=== PATIENT | male | born 1985 | race African-American/Black ===

== ENCOUNTER 2025-02-11 12:20 | Inpatient (IN) | payer OTHER, MEDICAID ==
[~2025-02-11] VITALS: Ht 167.6 cm; Wt 67.2 kg
[2025-02-11 13:35] LABS: PLATELET COUNT (AUTO) 301 K/uL (150-450); RED BLOOD CELL COUNT(AUTO) 4.87 MIL/uL (4.50-5.90); RED CELL DISTRIBUTION WIDTH 13.8 % (11.5-14.5); WHITE BLOOD COUNT (AUTO) 8.7 K/uL (4.5-11.0)
[2025-02-11] MEDS: LORazepam 2 MG/ML VIAL IM ONE (13:39)
[2025-02-11 13:42] LABS: CALCIUM, TOTAL 9.0 mg/dL (8.8-10.5); CREATININE 1.27 mg/dL (0.60-1.30); GLOMERULAR FILTR. RATE CALC > 60 mL/min (>60); GLUCOSE,RANDOM 166 mg/dL (70-110); SODIUM SERUM 142 mmol/L (136-145); UREA NITROGEN, BLOOD 17 mg/dL (7-18)
[2025-02-11] MEDS ORDERED: ZOLPIDEM TARTRATE 10 MG TABLET PO PRN (13:45)
[2025-02-11 14:02] LABS: COVID AG,FIA SOURCE NASAL SWAB
[2025-02-11 14:18] VITALS: O2SAT 98
[2025-02-11 14:33] LABS: SARS-COV2 (COVID) ANTIGEN,FIA Negative (Negative)
[2025-02-11 19:16] VITALS: BP 116/93; PULSE 58; RESP 16; TEMP 98.2; O2SAT 100
[2025-02-11 20:46] VITALS: RESP 18
[2025-02-11 22:36] VITALS: RESP 17
[2025-02-12 10:11] VITALS: RESP 17
[2025-02-12] MEDS ORDERED: RISP4TAB94 PO (11:12)
[2025-02-12] MEDS ORDERED: RISP0.5T39 PO (11:12)
[2025-02-12 22:41] VITALS: BP 127/67; PULSE 72; RESP 17; TEMP 98.1; O2SAT 98
[2025-02-13] MEDS ORDERED: IBUPROFEN 600 MG TABLET PO PRN
[2025-02-13] MEDS ORDERED: BENZOCAINE/MENTHOL [CEPACOL] LOZENGE PO PRN
[2025-02-13] MEDS ORDERED: OMEPRAZOLE 20 MG CAPSULE PO PRN
[2025-02-13] MEDS ORDERED: MAGNESIUM HYDROXIDE SUSPENSION 30 ML UDCUP PO PRN
[2025-02-13] MEDS ORDERED: GLUCAGON,HUMAN RECOMBINANT 1 MG VIAL IM PRN
[2025-02-13] MEDS ORDERED: ALBUTEROL SULFATE HFA 90 MCG/PUFF 8 GM INHALER IH PRN
[2025-02-13] MEDS ORDERED: LOPERAMIDE HCL 2 MG CAPSULE PO PRN
[2025-02-13] MEDS ORDERED: DOCUSATE SODIUM 100 MG CAPSULE PO PRN
[2025-02-13] MEDS ORDERED: MAG HYDROX/ALUMINUM HYD/SIMETH ES 30 ML SUSPENSION UDCUP PO PRN
[2025-02-13] MEDS ORDERED: BACITRACIN 28 GM OINTMENT TP PRN
[2025-02-13] MEDS ORDERED: PETROLATUM,WHITE 28 GM JELLY TP PRN
[2025-02-13] MEDS ORDERED: ONDANSETRON 4 MG TABLET PO PRN
[2025-02-13] MEDS ORDERED: ACETAMINOPHEN 325 MG TABLET PO PRN
[2025-02-13 08:47] LABS: CHOL/HDL RATIO 4.6 (4.2-7.3); LDL CHOL (CALC.) 91.0 mg/dL (0-130)
[2025-02-13 13:59] VITALS: BP 103/70; PULSE 53; RESP 18; TEMP 97.9; O2SAT 100
[2025-02-13 20:29] VITALS: BP 115/86; PULSE 86; RESP 16; TEMP 97.8; O2SAT 99
[2025-02-13 23:55] LABS: GLUCOMETER DEV NAME(LOC) BV3N.2; GLUCOSE,POINT OF CARE 138 MG/DL (70-110)
[2025-02-14] MEDS: INSULIN LISPRO 100 UNITS/ML SQ PRN (06:31)
[2025-02-14 06:45] LABS: GLUCOMETER DEV NAME(LOC) BV3N.2; GLUCOSE,POINT OF CARE 136 MG/DL (70-110)
[2025-02-14 08:47] VITALS: BP 116/73; PULSE 68; RESP 16; TEMP 98.1; O2SAT 100
[2025-02-14] MEDS ORDERED: RISP0.5T80 PO (13:26)
[2025-02-14] MEDS ORDERED: SITA25 PO (13:27)
[2025-02-14] MEDS ORDERED: METF-1211 PO (13:28)
== END 2025-02-14 14:45 | disposition home or self-care (01) | DRG 885 ==
LOC: EMS 12:20 → B3A 14:42
PROVIDERS: ADMIT Psychiatry & Neurology Psychiatry; ATTEND Psychiatry & Neurology Psychiatry
PROC: GZHZZZZ Group Psychotherapy (ICD-10-PCS; principal; 2025-02-12)
PROC: GZ51ZZZ Individual Psychotherapy, Behavioral (ICD-10-PCS; 2025-02-12)
DX: F20.0 Paranoid schizophrenia (principal); G47.00 Insomnia, unspecified; D64.9 Anemia, unspecified; Z20.822 Contact with and (suspected) exposure to COVID-19
CPT/HCPCS: 80048; 80061; 82962; 83036; 84443; 85025; 96372; 99285; G0480; J1200; J1630; J2060